=== PATIENT | male | born 1995 | race Caucasian/White ===

== ENCOUNTER 2016-09-24 23:10 | Emergency (ER) | payer OTHER ==
[2016-09-24] MEDS ORDERED: Ketorolac INJ* 60 MG/2 ML VIAL IM ONE (23:32)
[2016-09-25] MEDS ORDERED: traMADol TAB* 50 MG PO ONE ×2 (00:33→00:44)
--- NOTE | 2016-09-25 00:50 | ED ---
Upper Extremity Pain - HPI Summary HPI Summary: Patient arrives to ED after a dislocation to the left ring finger during basketball practice. He states he is able to feel his fingers and denies other injuries. He is at a 8/10 pain and the pain does not radiate. - History of Current Complaint Hx Obtained From: Patient Mechanism Of Injury: Blunt Trauma Onset/Duration: Started Minutes Ago Timing: Constant Severity Initially: Moderate Severity Currently: Severe Pain Location: Finger Character: Sharp Aggravating Factor(s): Movement Alleviating Factor(s): Rest, Ice Related History: Dominant Hand Right - Risk Factors Non-Orthopedic Risk Factor: Negative DVT Risk Factors: Negative Septic Arthritis Risk Factor: Negative <Mandy Vann - Last Filed: 09/25/16 00:45> <Patrick Cruz - Last Filed: 09/26/16 04:44> - History of Current Complaint Chief Complaint: EDExtremityUpper Stated Complaint: POSS DISLOCATED LEFT RING FINGER Time Seen by Provider: 09/24/16 23:18 - Allergies/Home Medications Allergies/Adverse Reactions: Allergies Allergy/AdvReac Type Severity Reaction Status Date / Time Fish Allergy Allergy Anaphylatic Verified 09/24/16 23:16 Shock PMH/Surg Hx/FS Hx/Imm Hx Previously Healthy: Yes Infectious Disease History: No Infectious Disease History: Denies: Traveled Outside the [place] in Last 30 Days - Social History Occupation: Employed Full-time Lives: With Family Hx Substance Use: No Substance Use Type: Reports: None Hx Tobacco Use: No Household Exposure: No <Mandy Vann - Last Filed: 09/25/16 00:45> Review of Systems Constitutional: Negative Cardiovascular: Negative Respiratory: Negative Positive: Arthralgia - dorsal dislocation of DIP joint of left ring finger Skin: Negative Neurological: Negative Psychological: Normal All Other Systems Reviewed And Are Negative: Yes <Mandy Vann - Last Filed: 09/25/16 00:45> Physical Exam Triage Information Reviewed: Yes Vital Signs On Initial Exam: Initial Vitals Temp Pulse Resp BP Pulse Ox 98.1 F 88 18 124/78 99 09/24/16 23:12 09/24/16 23:12 09/24/16 23:12 09/24/16 23:12 09/24/16 23:12 Vital Signs Reviewed: Yes Appearance: Positive: Well-Appearing, Pain Distress Skin: Positive: Warm, Skin Color Reflects Adequate Perfusion Head/Face: Positive: Normal Head/Face Inspection Eyes: Positive: Normal, EOMI ENT: Positive: Hearing grossly normal Neck: Positive: Supple, Nontender Respiratory/Lung Sounds: Positive: Breath Sounds Present Cardiovascular: Positive: Normal Musculoskeletal: Positive: Other - dorsal dislocation of DIP joint of left ring finger Neurological: Positive: Normal, Speech Normal Psychiatric: Positive: Normal <Mandy Vann - Last Filed: 09/25/16 00:45> Vital Signs On Initial Exam: Initial Vitals Temp Pulse Resp BP Pulse Ox 98.1 F 88 18 124/78 99 09/24/16 23:12 09/24/16 23:12 09/24/16 23:12 09/24/16 23:12 09/24/16 23:12 <Patrick Cruz - Last Filed: 09/26/16 04:44> Diagnostics - Vital Signs Vital Signs Temp Pulse Resp BP Pulse Ox 09/24/16 23:12 98.1 F 88 18 124/78 99 - Radiology No standard instances Xray Interpretation: Positive (See Comments) Radiology Interpretation Completed By: ED Physician - dorsal dislocation of DIP joint of left ring finger <Mandy Vann - Last Filed: 09/25/16 00:45> - Vital Signs Vital Signs Temp Pulse Resp BP Pulse Ox 09/25/16 01:45 68 16 124/67 09/24/16 23:12 98.1 F 88 18 124/78 99 <Patrick Cruz - Last Filed: 09/26/16 04:44> Re-Evaluation - Re-Evaluation First Eval Change: Improved - s/p reduction - pain improved <Mandy Vann - Last Filed: 09/25/16 00:45> Course/Dx - Course Course Of Treatment: patient was sent to xray. read as dorsal dislocation of DIP joint on left ring finger. Reduced. xray s/p follow up with joint in place. Tramadol sent home with patient. Follow up with Dr. Santoyo. - Diagnoses Differential Diagnosis/HQI/PQRI: Positive: Fracture (Closed), Strain, Sprain, Other - dislocation <Mandy Vann - Last Filed: 09/25/16 00:45> <Patrick Cruz - Last Filed: 09/26/16 04:44> - Diagnoses Provider Diagnoses: Dislocation of left ring finger Discharge <Mandy Vann - Last Filed: 09/25/16 00:45> <Patrick Cruz - Last Filed: 09/26/16 04:44> - Discharge Plan Condition: Stable Disposition: HOME Patient Education Materials: Finger Dislocation (ED) Additional Instructions: Continue with splint unto follow up with Dr. Santoyo. You may retape after showering, but do not take splint off for any period of time. Ibuprofen as needed for pain.
[2016-09-25 06:54] VITALS: BP 124/67
--- NOTE | 2016-09-25 07:47 | RAD ---
INDICATION: Left ring finger dislocation. TECHNIQUE: 3 views of the left ring finger were obtained. FINDINGS: There is dislocation of the proximal interphalangeal joint. The middle phalanx is displaced posterior one shaft diameter relative to the proximal phalanx and is angulated medial. No fracture is appreciated. IMPRESSION: DISLOCATION OF THE PROXIMAL INTERPHALANGEAL JOINT.
--- NOTE | 2016-09-25 07:57 | RAD ---
INDICATION: Left ring finger dislocation status post external reduction. COMPARISON: Comparison is made with a prior x-ray study of the left ring finger from September 24, 2016. TECHNIQUE: 3 views of the left ring finger were obtained. FINDINGS: There is soft tissue swelling around the proximal interphalangeal joint. The bones are in normal alignment. There has been interval reduction of the previously noted dislocation. No fracture is seen. Joint spaces appear maintained. IMPRESSION: STATUS POST EXTERNAL REDUCTION. THE BONES ARE IN NORMAL ALIGNMENT.
== END 2016-09-25 01:45 | disposition home or self-care (01) ==
LOC: ED 23:10
DX: S63.255A Unspecified dislocation of left ring finger, initial encounter (principal); X58.XXXA Exposure to other specified factors, initial encounter; Y93.67 Activity, basketball; Y92.89 Other specified places as the place of occurrence of the external cause
CPT/HCPCS: 73140; 96372; 99282; A9270-GY; J1885

== ENCOUNTER 2017-01-10 21:32 | Emergency (ER) | payer OTHER ==
[2017-01-10 21:54] VITALS: BP 138/62
[2017-01-10] MEDS ORDERED: guaiFENesin/CODIEN 100MG-10MG* 5 ML UDC PO ONE (22:31)
--- NOTE | 2017-01-10 22:31 | UC ---
Respiratory Complaint HPI - HPI Summary HPI Summary: ABOUT 4 DAYS AGO HAD SUBJECTIVE LOW GRADE FEVER, CONGESTION AND FATIGUE. THOSE SYMPTOMS HAVE RESOLVED BUT NOW HAS A DRY COUGH. KEPT HIM UP LAST NIGHT. NO HELP WITH OTC ROBITUSSIN. NO ST, EAR PAIN OR N/V/D. - History of Current Complaint Chief Complaint: UCRespiratory Stated Complaint: COUGH Time Seen by Provider: 01/10/17 22:15 Hx Obtained From: Patient Onset/Duration: Gradual Onset, Lasting Days, Still Present Timing: Constant Severity Initially: Moderate Severity Currently: Moderate Pain Intensity: 6 Pain Scale Used: 0-10 Numeric Character: Cough: Nonproductive Aggravating Factors: Nothing Alleviating Factors: Nothing Associated Signs And Symptoms: Positive: Fever, URI, Nasal Congestion - Allergies/Home Medications Allergies/Adverse Reactions: Allergies Allergy/AdvReac Type Severity Reaction Status Date / Time Fish Allergy Allergy Anaphylatic Verified 01/10/17 21:54 Shock PMH/Surg Hx/FS Hx/Imm Hx Previously Healthy: Yes - Surgical History Surgical History: None - Family History Known Family History: Negative: Hypertension - Social History Alcohol Use: Weekly Substance Use Type: None Smoking Status (MU): Never Smoked Tobacco Review of Systems Constitutional: Fever ENT: Nasal Discharge Respiratory: Cough Cardiovascular: Negative Gastrointestinal: Negative All Other Systems Reviewed And Are Negative: Yes Physical Exam Triage Information Reviewed: Yes Appearance: Well-Appearing, No Pain Distress, Well-Nourished Vital Signs: Initial Vital Signs Temp 98.7 F 01/10/17 21:51 Pulse 71 01/10/17 21:51 Resp 16 01/10/17 21:51 BP 138/62 01/10/17 21:51 Pulse Ox 97 01/10/17 21:51 Vital Signs Reviewed: Yes Eyes: Positive: Conjunctiva Clear ENT: Positive: Hearing grossly normal, Pharynx normal, TMs normal Neck: Positive: Supple, Nontender, No Lymphadenopathy Respiratory Exam: Normal Cardiovascular Exam: Normal Abdomen Description: Positive: Soft Musculoskeletal: Positive: No Edema Neurological: Positive: Alert Psychological: Positive: Age Appropriate Behavior Skin: Negative: rashes UC Diagnostic Evaluation - Laboratory O2 Sat by Pulse Oximetry: 97 Respiratory Course/Dx - Differential Dx/Diagnosis Provider Diagnoses: ACUTE URI Discharge - Discharge Plan Condition: Stable Disposition: HOME Prescriptions: guaiFENesin/CODIEN 100MG-10MG* [Robitussin AC 100Mg-10Mg*] 5 - 10 ml PO Q6H PRN #150 ml MDD 40 ML PRN Reason: Cough Patient Education Materials: Upper Respiratory Infection (ED) [facility] - If Needed Additional Instructions: ACUTE UPPER RESPIRATORY INFECTION The common cold is a benign self-limited syndrome representing a group of diseases caused by members of several families of viruses. It is the most frequent acute illness in the [place] and throughout the industrialized world. The term "common cold" refers to a mild upper respiratory viral infection involving, to variable degrees, nasal congestion and discharge ( rhinorrhea), sneezing, sore throat, cough, low-grade fever, headache, and malaise. Symptomatic therapy remains the mainstay of common cold treatment. In the absence of convincing evidence of a secondary bacterial infection, antibiotics are not effective in the treatment of the common cold and should not be prescribed. Be advised that the usual course and duration of illness is up to one and a half weeks for patients with a cold, but can last slightly longer; symptoms usually persist longer in smokers.
== END 2017-01-10 22:45 | disposition home or self-care (01) ==
LOC: UCEAST 21:32
DX: J06.9 Acute upper respiratory infection, unspecified (principal)
CPT/HCPCS: 99212; A9270-GY; G0463